=== PATIENT | male | born 1995 | race Caucasian/White ===

== ENCOUNTER → 2017-07-07 14:15 | Outpatient (CLI) | payer OTHER, MEDICAID, SELFPAY ==
--- NOTE | 2017-07-07 14:17 | DI.RAD.S_ITS ---
PROCEDURE: XR HAND LT MIN 3V INDICATIONS: hand ganglion/pain with john paul prominence TECHNIQUE: 3 views of the hand(s) acquired. COMPARISON: None. FINDINGS: Bones: No fractures or dislocations. Carpal bones are normally aligned. No suspicious bony lesions. Soft tissues: No suspicious soft tissue calcifications. Possible soft tissue mass over the triquetrum. IMPRESSION: 1. No osseous lesions identified. 2. Possible soft tissue mass in the lateral aspect of the wrist over the triquetrum. If clinical symptoms persist MRI with and without contrast may be helpful for further evaluation. Dictated by: Doni Anderson M.D. on 07/07/2017 at 17:57 Approved by: Doni Anderson M.D. on 07/07/2017 at 17:59
== END ==
PROVIDERS: PCP Physician Assistant; Visit Provider Physician Assistant
DX: Z82.69 Family history of other diseases of the musculoskeletal system and connective tissue (principal); M79.642 Pain in left hand
CPT/HCPCS: 73130

== ENCOUNTER → 2017-10-26 16:51 | Outpatient (CLI) | payer OTHER, MEDICAID, SELFPAY | PROVIDERS: PCP Physician Assistant; Visit Provider Physician Assistant | DX: Z82.69 Family history of other diseases of the musculoskeletal system and connective tissue (principal) | CPT/HCPCS: 36415; 81401; 81404; 81406; 81479 ==

== ENCOUNTER → 2018-04-18 14:40 | Outpatient (CLI) | payer OTHER, SELFPAY ==
--- NOTE | 2018-04-18 14:44 | DI.RAD.S_ITS ---
PROCEDURE: XR CHEST 2V INDICATIONS: Abnormal lung sounds base of L lung TECHNIQUE: 2 views of the chest were acquired. COMPARISON: None. FINDINGS: Surgical changes and devices: None. Lungs and pleura: Lungs are clear. No pleural effusions or pneumothorax. Mediastinum: Mediastinal contours are normal. Heart size is normal. Bones and chest wall: No suspicious bony abnormalities. Soft tissues appear unremarkable. IMPRESSION: No acute cardiopulmonary disease. Dictated by: Doni Anderson M.D. on 04/18/2018 at 17:12 Approved by: Doni Anderson M.D. on 04/18/2018 at 17:13
[2018-04-18 15:55] LABS: Alanine Aminotransferase 34 IU/L (21-72); Albumin 4.8 g/dL (3.5-5.0); Albumin Globulin Ratio 1.3 (1.0-2.8); Alkaline Phosphatase 65 U/L (38-126); Aspartate Aminotransferase 29 IU/L (17-59); BUN Creatinine Ratio 10.9 (6-22); Bilirubin Total 1.1 mg/dL (0.2-1.3); Blood Urea Nitrogen 12 mg/dL (9-20); Calcium 9.6 mg/dL (8.4-10.2); Carbon Dioxide 28 mmol/L (22-32); Chloride 103 mmol/L (98-107); Estimated Glomerular Filt Rate > 60.0 mL/min (>60); Globulin 3.6 g/dL (1.7-4.1); Glucose 73 mg/dL (70-100); HEMOLYSIS < 15 (0-50); Magnesium 2.1 mg/dL (1.6-2.3); Potassium 4.4 mmol/L (3.4-5.1); Sodium 140 mmol/L (137-145); Total Protein 8.4 g/dL (6.3-8.2)
[2018-04-18 16:01] LABS: Add Manual Diff / Slide Review NO; Basophils Absolute Auto 100 /uL (0-100); Basophils Percent Auto 0.7 % (0-2); Eosinophils Absolute Auto 200 /uL (0-450); Eosinophils Percent Auto 2.3 % (2-4); Hematocrit 43.7 % (41-53); Lymphocytes Absolute Auto 2300 /uL (1100-4500); Lymphocytes Percent Auto 29.2 % (25-40); Mean Corpuscular HGB Conc 34.2 % (30-36); Mean Corpuscular Hemoglobin 29.5 PG (26-34); Monocytes Absolute Auto 700 /uL (0-900); Monocytes Percent Auto 8.4 % (3-14); Neutrophils Absolute Auto 4700 /uL (1500-7000); Neutrophils Percent Auto 59.4 % (50-75); Platelet Count 254 X10^3/uL (150-400); Red Blood Cell Count 5.08 X10^6/uL (4.5-5.9); White Blood Cell Count 7.9 X10^3/uL (4.5-11.0)
[2018-04-18 16:13] LABS: Erythrocyte Sedimentation Rate 7 MM/HR (0-15)
== END ==
PROVIDERS: PCP Physician Assistant; Visit Provider Physician Assistant
DX: R09.89 Other specified symptoms and signs involving the circulatory and respiratory systems (principal); R51 Headache
CPT/HCPCS: 36415; 71046; 80053; 83735; 85025; 85651

== ENCOUNTER → 2020-06-05 08:14 | Outpatient (CLI) | payer OTHER, SELFPAY ==
[2020-06-05] MEDS: COVID-19 VACC #1, MRNA(MOD) 100 MCG/0.5 ML VIAL IM (08:24)
== END ==
PROVIDERS: PCP Physician Assistant; Visit Provider Internal Medicine
DX: Z23 Encounter for immunization (principal)
CPT/HCPCS: 0011A; 91301

== ENCOUNTER → 2020-06-12 16:38 | Outpatient (CLI) | payer OTHER, SELFPAY ==
[2020-06-12 18:39] LABS: Urine N gonorrhoeae NOT DETECTED
[2020-06-12 18:42] LABS: HIV 1 & 2 Ab/Ag 4th Gen Combo NEGATIVE (NEGATIVE)
[2020-06-12 19:07] LABS: Urine Chlamydia NOT DETECTED
[2020-06-13 06:34] LABS: HBsAg Screen Negative (Negative); Hepatitis A Antibody IgM Negative (Negative); Hepatitis B Core Antibody IgM Negative (Negative); Hepatitis C Antibody <0.1 s/co ratio (0.0-0.9)
[2020-06-13 07:39] LABS: RPR Screen Non Reactive (Non Reactive)
== END ==
PROVIDERS: PCP Family Medicine; Referring Provider Family Medicine; Visit Provider Family Medicine
DX: A64 Unspecified sexually transmitted disease (principal)
CPT/HCPCS: 36415; 80074; 86592; 87389; 87491; 87591

== ENCOUNTER → 2020-07-03 15:59 | Outpatient (CLI) | payer OTHER, SELFPAY ==
[2020-07-03] MEDS: COVID-19 VACC #2, MRNA(MOD) 100 MCG/0.5 ML VIAL IM (16:04)
== END ==
PROVIDERS: PCP Family Medicine; Visit Provider Internal Medicine
DX: Z23 Encounter for immunization (principal)
CPT/HCPCS: 0012A; 91301